=== PATIENT | male | born 1975 | race Caucasian/White ===

== ENCOUNTER 2016-11-22 10:18 | Emergency (ER) | payer OTHER ==
[~2016-11-22] VITALS: Wt 121.5 kg
[~2016-11-22 10:18] MED LIST: AMO500 PO; DICY20TA59 PO; DOCU-144 PO; HYDR-906 PO; IBUP800T25 PO; METO50TA16 PO; ONDA4TAB14 PO; OXYC5CAP17 PO; SERT-165 PO
--- NOTE | 2016-11-22 16:04 | RADRPT ---
PROCEDURE: XR Chest. CLINICAL INDICATION: chest pain TECHNIQUE: Single frontal view of the chest was obtained COMPARISON: None FINDINGS: The heart and mediastinum are within normal limits. The lungs are clear. There is no pleural effusion or pneumothorax. RPTAT: AA IMPRESSION: No acute disease. .Osmin Robertson MD, Date Time Electronically viewed and signed by .Osmin Robertson MD, on 11/22/2016 16:04 .S/
[2016-11-22] MEDS ORDERED: SERT-165 PO (16:23)
[2016-11-22] MEDS ORDERED: METO-429 PO (16:23)
[2016-11-22 16:31] LABS: BASOPHILS % 0.6 % (0.0-2.0); EOSINOPHILS # 0.2 10^3/ul (0.0-0.5); EOSINOPHILS % 2.4 % (0.0-7.0); LYMPHOCYTES # 2.1 10^3/ul (0.8-2.9); MEAN CORPUSCULAR HEMOGLOBIN 30.8 pg (29.0-33.0); MEAN CORPUSCULAR HGB CONC 34.9 g/dl (32.0-37.0); MEAN CORPUSCULAR VOLUME 88.3 fl (82.0-101.0); MEAN PLATELET VOLUME 9.7 fl (7.4-10.4); MONOCYTE # 0.5 10^3/ul (0.3-0.9); MONOCYTES % 8.4 % (0.0-11.0); NEUTROPHILS % 55.4 % (39.0-77.0); PLATELET COUNT 283 10^3/UL (140-415); RED BLOOD COUNT 4.87 10^6/ul (4.70-6.10); RED CELL DISTRIBUTION WIDTH 12.5 % (11.5-14.5); WHITE BLOOD COUNT 6.3 10^3/ul (4.8-10.8)
[2016-11-22 16:47] VITALS: BP 156/73; PULSE 75; RESP 18
[2016-11-22 16:48] LABS: ANION GAP 23 (8-16); BLOOD UREA NITROGEN 12 mg/dl (7-20); CALCIUM 8.8 mg/dl (8.4-10.2); CARBON DIOXIDE 21 mmol/L (21-31); CHLORIDE 104 mmol/L (97-110); CREATININE 0.72 mg/dl (0.61-1.24); GLUCOSE 105 mg/dl (70-220); POTASSIUM 3.8 mmol/L (3.5-5.1); SODIUM 144 mmol/L (135-144)
[2016-11-22 16:59] LABS: B-TYPE NATRIURETIC PEPTIDE 89 PG/ML (0-125)
[2016-11-22 17:00] LABS: TROPONIN-I < 0.012 ng/ml (0.00-0.12)
[2016-11-22] MEDS ORDERED: IOHEXOL 100 ML ONE (17:40)
[2016-11-22] MEDS ORDERED: SOD CHLORIDE 0.9% 100 ML ONE (17:40)
[2016-11-22] MEDS ORDERED: IOHEXOL 350MG/ML 50 ML BTL ONE (17:40)
--- NOTE | 2016-11-22 18:19 | RADRPT ---
PROCEDURE: CT Chest Angiogram with contrast. CLINICAL INDICATION: Shortness of breath TECHNIQUE: CT scan of the chest with contrast was performed on a multidetector high-resolution CT scanner. The patient was scanned following the uncomplicated intravenous administration of 100 cc o f Isovue 300 contrast. Coronal and sagittal reformatted images were obtained from the axial source images. Additional 3D volumetric renderings were created. Images were reviewed on a [email or web address] PACS workstation. The total exam CTDI equals 42/20 mGy and the total exam DLP equals 939 mGy-cm. O ne or more of the following dose reduction techniques were used: Automated exposure control, Adjustm ent of the mA and/or kV according to patient size, and/or use of iterative reconstruction technique. COMPARISON: Correlation chest x-ray earlier today FINDINGS: Technically adequate exam for the evaluation of the pulmonary arteries to the segmental level. No in traluminal filling defects are seen. No focal consolidation or pulmonary mass. No mediastinal or hilar lymphadenopathy. No pleural or pericardial effusion. Hypoattenuation of the liver. IMPRESSION: No evidence of pulmonary embolus. No acute consolidation or pleural effusion. Hepatic steatosis. RPTAT: AA .Narendra Morgan MD, MD Date Time Electronically viewed and signed by .Narendra Morgan MD, on 11/22/2016 18:18 .T/
--- NOTE | 2016-11-22 19:03 | ERD ---
ER Documentation Chief Complaint Date/Time DATE: 11/22/16 TIME: 18:59 Chief Complaint sob, palpitations x1.5 wks, states jaw clenched and cold sweat yest HPI This 41-year-old male comes for chest discomfort, palpitations and shortness of breath intermittently for 10 days. Yesterday had an episode of sweating. He had just stopped drinking for 3 days straight 2 days ago. He has had no episodes of sweating today but does feel mild chest discomfort and mild shortness of breath. No nausea or vomiting. Has a history of hypertension and took his metoprolol today ROS All systems reviewed and are negative except as per history of present illness. Medications Home Meds Reported Medications Sertraline Hcl* (Sertraline Hcl*) 100 Mg Tablet, 100 MG PO DAILY, #30 TAB 11/22/16 Metoprolol Tartrate* (Lopressor*) 50 Mg Tab, 50 MG PO BID, #60 TAB 11/22/16 Discontinued Reported Medications Docusate Sodium* (Colace*) 100 Mg Capsule, 100 MG PO BID Y for CONSTIPATION, CAP 05/20/14 Docusate Sodium* (Colace*) 100 Mg Capsule, 100 MG PO BID Y for CONSTIPATION, CAP 05/20/14 Oxycodone Hcl* (IR) (Oxycodone Hcl*) 5 Mg Capsule, 5-15 MG PO Q6 Y for PAIN, CAP 05/19/14 Metoprolol Succinate* (Toprol XL*) 50 Mg Tab.er.24h, 50 MG PO DAILY 03/03/13 Sertraline Hcl* (Sertraline Hcl*) 100 Mg Tablet, 100 MG PO DAILY 03/03/13 Discontinued Scripts Ondansetron (Ondansetron Odt) 4 Mg Tab.rapdis, 4 MG PO Q8 Y for NAUSEA AND/OR VOMITING, #30 TAB Prov:GLADIS TAVAREZ NP 12/07/15 Dicyclomine Hcl* (Bentyl*) 20 Mg Tablet, 20 MG PO QID, #20 TAB Prov:GLADIS TAVAREZ FIELD SERVICES ANALYST 12/07/15 Hydrocodone/Acetaminophen ([place] 5-325 Tablet) 1 Each Tablet, 1 TAB PO Q6H Y for PAIN, #20 TAB Prov:GLADIS TAVAREZ FIELD SERVICES ANALYST 9/12/16 Ibuprofen* (Motrin*) 800 Mg Tab, 800 MG PO Q6, #30 TAB Prov:LARRY SINCLAIR FIELD SERVICES ANALYST 05/23/15 Amoxicillin* (Amoxicillin*) 500 Mg Cap, 500 MG PO BID for 7 Days, CAP Prov:LARRY SINCLAIR FIELD SERVICES ANALYST 05/23/15 Allergies Allergies: Coded Allergies: caffeine (Verified Allergy, Unknown, pale, 11/22/16) PMhx/Soc History of Surgery: Yes (bowel resection, reset of colostomy) Anesthesia Reaction: No Hx Neurological Disorder: No Hx Respiratory Disorders: No Hx Cardiac Disorders: Yes (htn) Hx Psychiatric Problems: Yes (depression) Hx Miscellaneous Medical Probl: Yes (ruptured diverticulitis) Hx Alcohol Use: Yes (socially) Hx Substance Use: No Hx Tobacco Use: No Smoking Status: Never smoker Physical Exam Vitals Vital Signs Date Time Temp Pulse Resp B/P Pulse Ox O2 Delivery O2 Flow Rate FiO2 11/22/16 16:47 75 18 156/73 98 Room Air 11/22/16 16:00 77 18 145/95 98 Room Air 11/22/16 10:24 98.0 78 20 160/94 98 Physical Exam Const: [] No Distress Head: Atraumatic Eyes: Normal Conjunctiva ENT: Normal External Ears, Nose and Mouth. Neck: Full range of motion..~ No meningismus. Resp: Clear to auscultation bilaterally Cardio: Regular rate and rhythm, no murmurs Abd: Soft, non tender, non distended. Normal bowel sounds Skin: No petechiae or rashes Back: No midline or flank tenderness Ext: No cyanosis, or edema Neur: Awake and alert, and oriented x 3 Psych: Normal Mood and Affect Result Diagram: 11/22/16 1615 11/22/16 1615 Results 24 hrs Laboratory Tests Test 11/22/16 16:15 White Blood Count 6.310^3/ul Red Blood Count 4.8710^6/ul Hemoglobin 15.0g/dl Hematocrit 43.0% Mean Corpuscular Volume 88.3fl Mean Corpuscular Hemoglobin 30.8pg Mean Corpuscular Hemoglobin Concent 34.9g/dl Red Cell Distribution Width 12.5% Platelet Count 31042^3/UL Mean Platelet Volume 9.7fl Neutrophils % 55.4% Lymphocytes % 33.0% Monocytes % 8.4% Eosinophils % 2.4% Basophils % 0.6% Nucleated Red Blood Cells % 0.0/100WBC Neutrophils # (Manual) 3.510^3/ul Lymphocytes # 2.110^3/ul Monocytes # 0.510^3/ul Eosinophils # 0.210^3/ul Basophils # 0.010^3/ul Nucleated Red Blood Cells # 0.010^3/ul Sodium Level 144mmol/L Potassium Level 3.8mmol/L Chloride Level 104mmol/L Carbon Dioxide Level 21mmol/L Anion Gap 23 Blood Urea Nitrogen 12mg/dl Creatinine 0.72mg/dl Glucose Level 105mg/dl Calcium Level 8.8mg/dl Troponin I < 0.012ng/ml B-Type Natriuretic Peptide 89PG/ML Current Medications Medications (Trade) Dose Ordered Sig/Servando Route PRN Reason Start Time Stop Time Status Last Admin Dose Admin IV Flush 10 ml 10 ml STK-MED ONCE .ROUTE 11/22/16 17:40 11/22/16 17:41 DC 11/22/16 18:21 Sodium Chloride 100 ml @ ud STK-MED ONCE .ROUTE 11/22/16 17:40 11/22/16 17:41 DC 11/22/16 18:20 Iohexol (Omnipaque) 100 ml @ ud STK-MED ONCE .ROUTE 11/22/16 17:40 11/22/16 17:41 DC 11/22/16 18:21 Iohexol (Omnipaque 350mg/ ml) 50 ml STK-MED ONCE .ROUTE 11/22/16 17:40 11/22/16 17:41 DC 11/22/16 18:22 Procedures/MDM Atypical chest pain with no evidence of ischemic disease or arrhythmia with full cardiac workup. Patient was given aspirin in the emergency room. Remained stable on a environmental monitoring technician feeling well. Going to discharge her with instructions to call his primary care doctor for an echocardiogram or stress test on a treadmill for the next week or so. Strict return precautions for any return of chest pain or any concerning symptoms. EKG interpretation: Normal sinus rhythm, borderline axis, no ST or T-wave changes concerning for acute ischemia, normal intervals. secured entrance monitor interpretation: Normal sinus rhythm without arrhythmia Chest x-ray interpretation: I see no acute process, I see no widened mediastinum , pneumothorax, no infiltrates, no pulmonary edema, no fracture Departure Diagnosis: Primary Impression: Chest pain Additional Impression: Shortness of breath Condition: Stable Patient Instructions: Chest Pain, Uncertain Cause, Dyspnea Additional Instructions: Call your primary care doctor TOMORROW for an appointment during the next 2-3 days. Get an appointment for an echocardiogram. See the doctor sooner or return here if your condition worsens before your appointment time. AGNES SHEIKH DO Nov 22, 2016 19:03
== END 2016-11-22 18:55 | disposition home or self-care (01) ==
LOC: E/R 10:18
DX: R07.9 Chest pain, unspecified (principal); I10 Essential (primary) hypertension
CPT/HCPCS: 36415; 71010; 71275; 80048; 83880; 84484; 85025; 93005; Q9967; Z7502; Z7610

== ENCOUNTER 2018-03-03 16:35 | Emergency (ER) | END 2018-03-03 21:07 | disposition home or self-care (01) ==